=== PATIENT | male | born 1975 | race Caucasian/White ===

== ENCOUNTER 2019-12-08 16:29 | Outpatient (REF) | payer OTHER, SELFPAY | END 2019-12-08 16:30 | disposition home or self-care (01) | LOC: HO.OHS 16:29 | PROVIDERS: Visit Provider Physician Assistant Medical | DX: Z03.818 Encounter for observation for suspected exposure to other biological agents ruled out (principal) ==

== ENCOUNTER 2022-08-05 03:47 | Emergency (ER) | payer OTHER, SELFPAY ==
[2022-08-05 04:10] VITALS: BP 159/97; PULSE 69; RESP 16; O2SAT 98; BMI 30.8
--- NOTE | 2022-08-05 04:12 | ED_ITS ---
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 Denies any history of HIV or hepatitis Related Data Allergies Allergy/AdvReac Type Severity Reaction Status Date / Time No Known Allergies Allergy Unverified 11/10/19 17:29 [No Known Allergies*] Review of Systems Review of Systems: Yes all other systems are reviewed and are negative [facility] Social History Social History Advance Directives: No Advance Directives Information Provided: Yes Physical Exam ED Vital Signs: Vital Signs - 24 hr 08/05/22 04:10 Pulse Rate 69 Respiratory Rate 16 Blood Pressure 159/97 H Pulse Oximetry 98 Oxygen Delivery Method Room Air BMI result Body Mass Index 30.8 Extrem Hand/finger images: 1. Small puncture wound tip of right index finger no active bleeding Medications Administered Discontinued Medications Generic Name Dose Route Start Last Admin Trade Name Freq PRN Reason Stop Dose Admin Raltegravir/Emtricitabine/Tenofovir 1 kit 08/05/22 04:11 08/05/22 04:41 Post Exposure Medication Kit PO 08/05/22 04:12 1 kit ONCE ONE Administration Medical Decision Making Medical Decision Making MDM Narrative: Patient was given prophylactic post exposure medications in the ER advised to follow-up with her connection for further management Lab Data MDM Lab Attestation statement: I reviewed the patient's lab results. 08/05/22 04:20 08/05/22 04:20 Labs: Lab Results 08/05/22 08/05/22 Range/Units 04:20 04:20 WBC 7.0 (4.8-10.8) X10*3/uL RBC 4.57 L (4.60-5.80) X10*6/uL Hgb 14.7 (14.0-18.0) g/dl Hct 41.9 L (42.0-52.0) % MCV 91.7 (80.0-98.0) fL MCH 32.2 (27.0-33.0) pg MCHC 35.1 (31.0-36.0) g/dl RDW 11.8 (11.0-16.0) % Plt Count 256 (160-400) X10*3/uL MPV 9.0 L (9.4-12.4) fL Immature Gran % (Auto) 0.3 (0.0-0.4) % Neut % (Auto) 50.3 (45-73) % Lymph % (Auto) 35.5 (20-40) % [place] % (Auto) 9.1 (2-11) % Eos % (Auto) 3.9 (0-4) % Baso % (Auto) 0.9 (0-2) % Lymph # (Auto) 2.5 (1.2-4.9) X10*3/uL [place] # (Auto) 0.6 (0.1-1.2) X10*3/uL Eos # (Auto) 0.3 (0.0-0.4) X10*3/uL Baso # (Auto) 0.1 (0.0-0.2) X10*3/uL Abs Immat Gran (auto) 0.02 (0.00-0.03) X10*3/uL Absolute Neuts (auto) 3.5 (2.0-8.3) x10*3/uL Absolute Nucleated RBC 0.000 (0.0-0.012) X10*3/uL Nucleated RBC % (auto) 0.0 (0.0-0.2) /100WBC Sodium 143 (135-145) mmol/L Potassium 3.9 (3.3-5.1) mmol/L Chloride 110 H (96-108) mmol/L Carbon Dioxide 25 (22-29) mmol/L Anion Gap 12 (12-20) BUN 23 H (9-16) mg/dL Creatinine 0.80 (0.5-1.4) mg/dL Estim Creat Clear Calc 114.9 Estimated GFR > 60 Random Glucose 104 (60-115) mg/dL Calcium 9.1 (8.4-10.2) mg/dL Total Bilirubin 0.3 (0.0-1.0) mg/dL AST 18 (5-37) U/L ALT 33 (0-40) U/L Alkaline Phosphatase 45 (39-117) U/L Total Protein 6.6 (6.5-8.0) g/dL Albumin 4.1 (3.5-5.0) g/dL Discharge Plan Discharge Clinical Impression: Needle stick, hypodermic, accidental Patient Disposition: Home, Self-Care Instructions: Needle Stick Injuries (ED) Additional Instructions: Follow-up with work connection for further management
--- OUTSIDE RECORDS SUMMARY | 2022-08-05 04:21 | XMS_ITS | Continuity of Care Document ---
Author Name Unknown Organization [facility] al Address [address] [place] [address]- Care Team Providers Care Physician Representative Name Role Phone Anali Tyson Primary Care Physician [phone] [facility] Date(s): 04/14/19 - 04/15/[address] [address]- [facility] Discharge Disposition: A-D/C Home Attending Physician: Morenita Velez MD Admitting Physician: Morenita Velez MD Referring Physician: Not on Staff, Referring MD Allergies, Adverse Reactions, Alerts Substance Reaction Severity Status NKA Active Immunizations Given and Recorded Vaccine Date Status Refusal Reason tetanus-diphtheria toxoids (Td) 07/30/05 Given Medications Ativan 1 mg oral tablet 0.5 tablet = 0.5 mg, By Mouth, Daily, PRN as needed for anxiety, for 5 days, as needed for anxiety/panic attack, # 5 tablet, 0 Refills, Acute 04/20/19 0:38:00 EST, 04/15/19 0:38:00 EST, Tablet Start Date: 04/15/19 Stop Date: 04/20/19 Status: Ordered Ativan 1 mg oral tablet 1 tablet = 1 mg, By Mouth, 2 times a day, PRN as needed for anxiety, for 7 days, # 7 tablet, 0 Refills, Acute 04/22/19 0:39:00 EST, 04/15/19 0:39:00 EST, Tablet, [facility], 163, cm, 04/15/19 0:01:00 EST, Height, 82, kg, 04/15/19 0:01:0... Start Date: 04/15/19 Stop Date: 04/22/19 Status: Ordered Results Radiology Reports * Exam Date Time Procedure Performing Provider Status 04/14/19 11:49 PM Chest 2 Views Fronta l and Lat Cony [place]; Auth (Verified) Notes: (Chest 2 Views Frontal and Lat) Reason For Exam: Shortness of Breath RESULT: Chest 2 Views Frontal and Lat Chest 2 Views Frontal and Lat Refer to EMR; Reason: Shortness of Breath; Clinical Question(s): CHF; Hx of Present Illness: pt reports became lightheaded and dizzy @ work - felt like was going to pass out. BP 219 116- no hx. reports some intermittent L shoulder pain, tingling to all extremities when became lightheaded denies CP denies SOB; Other Objective Findings: alert aware of surroundings, talking in clear complete full s COMPARISON: None. FINDINGS: LINES AND TUBES: None. LUNGS AND PLEURA: Clear lungs. Normal pulmonary vascularity. No pleural effusion. No pneumothorax. HEART, MEDIASTINUM AND KEVIN: Heart is normal in size. Normal mediastinal and hilar contour. BONES AND SOFT TISSUES: No acute abnormality. IMPRESSION: No acute abnormality. WSN: [id number] Dictated By: Ezequiel Horton MD Dictated Date/Time: 04/14/19 11:52 p Reviewed By: Ezequiel Horton MD Signed By: Ezequiel Horton MD Signed Date/Time: 04/14/19 11:52 pm Transcribed By: MARCIO Transcribed Date/Time: 04/14/19 11:51 pm Vital Signs Most recent to oldest [Reference Range]: 1 2 3 Height 163 cm (04/15/19 12:01 AM) 163 cm (04/14/19 10:29 PM) 163 cm (04/14/19 10:19 PM) Weight 82 kg (04/15/19 12:01 AM) 82 kg (04/14/19 10:29 PM) 82 kg (04/14/19 10:19 PM) Oxygen Saturation [94-100 %] 99 % (04/15/19 12:01 AM) 99 % (04/14/19 10:14 PM) Pulse Rate [55-90 bpm] 76 bpm (04/15/19 12:01 AM) 76 bpm (04/14/19 10:29 PM) 77 bpm (04/14/19 10:14 PM) Body Mass Index [18.5-24.99] 30.86 *>HHI* (04/15/19 12:01 AM) 30.86 *>HHI* (04/14/19 10:29 PM) Blood Pressure [90-138/55-84 mm Hg] 135/88mm Hg (04/15/19 12:01 AM) 149/85mm Hg *H* (04/14/19 10:29 PM) 174/93mm Hg *H* (04/14/19 10:14 PM) Respiratory Rate [16-30 br/min] 15 br/min *L* (04/15/19 12:01 AM) 12 br/min *L* (04/14/19 10:29 PM) Temperature [96.8-100.4 DegF] 97.9 DegF (04/14/19 10:14 PM) Mode of Delivery (Oxygen) Room air (04/15/19 12:01 AM) Room air (04/14/19 10:14 PM) Blood pressure sites Arm, right (04/15/19 12:01 AM) Arm, right (04/14/19 10:29 PM) Arm, right (04/14/19 10:14 PM) Temperature Route Oral (04/14/19 10:14 PM) Dry Weight 82 kg (04/15/19 12:01 AM) 82 kg (04/14/19 10:29 PM) 82 kg (04/14/19 10:19 PM) Weight Obtained Via Patient/family state d (04/14/19 10:19 PM) Social History Social History Type Response Smoking Status Never (less than 100 in lifetime) entered on: 04/14/19 Sex
[2022-08-05 04:25] LABS: Basophils Absolute Auto 0.1 X10*3/uL (0.0-0.2); Basophils Percent Auto 0.9 % (0-2); Eosinophils Absolute Auto 0.3 X10*3/uL (0.0-0.4); Eosinophils Percent Auto 3.9 % (0-4); Hematocrit 41.9 % (42.0-52.0); Hemoglobin 14.7 g/dl (14.0-18.0); Imm Gran Abs Auto 0.02 X10*3/uL (0.00-0.03); Imm Gran Pct Auto 0.3 % (0.0-0.4); Lymphocytes Absolute Auto 2.5 X10*3/uL (1.2-4.9); Lymphocytes Percent Auto 35.5 % (20-40); MANUAL DIFF FLAG NO; Mean Corpuscular HGB Conc 35.1 g/dl (31.0-36.0); Mean Corpuscular Hemoglobin 32.2 pg (27.0-33.0); Mean Corpuscular Volume 91.7 fL (80.0-98.0); Monocytes Absolute Auto 0.6 X10*3/uL (0.1-1.2); Monocytes Percent Auto 9.1 % (2-11); Neutrophils Absolute Auto 3.5 x10*3/uL (2.0-8.3); Neutrophils Percent Auto 50.3 % (45-73); Platelet Count 256 X10*3/uL (160-400); Red Blood Count 4.57 X10*6/uL (4.60-5.80); Red Cell Distribution Width 11.8 % (11.0-16.0)
[2022-08-05] MEDS: Post Exposure Medication Kit 1 KIT PO (04:41)
[2022-08-05 04:54] LABS: Alanine Aminotransferase 33 U/L (0-40); Albumin Level 4.1 g/dL (3.5-5.0); Alkaline Phosphatase 45 U/L (39-117); Anion Gap 12 (12-20); Aspartate Amino Transferase 18 U/L (5-37); Bilirubin Total 0.3 mg/dL (0.0-1.0); Blood Urea Nitrogen 23 mg/dL (9-16); Calcium 9.1 mg/dL (8.4-10.2); Carbon Dioxide 25 mmol/L (22-29); Chloride 110 mmol/L (96-108); Creatinine Clr Calc Pharmacy 114.9; Estimated Glomerular Filt Rate > 60; Glucose Random 104 mg/dL (60-115); Potassium 3.9 mmol/L (3.3-5.1); Sodium 143 mmol/L (135-145); Total Protein 6.6 g/dL (6.5-8.0)
--- NOTE | 2022-08-05 04:58 | PC.NURSE ---
pt a&o, no sob or chest pain, Medicated per Apr, reviewed discharge instruction with pt. pt verbalized.
[2022-08-06 07:22] LABS: HBS Num1 2.06 mIU/mL (0-7.99); HBc Num1 0.09 S/CO (0.00-0.79); HBsAGNum1 0.26 S/CO (0.00-0.99); HIV AB/AG Nonreactive (Nonreactive); HIV Num 1 0.09 S/CO (0.00-0.99); Hepatitis B Core Antibody Nonreactive (Nonreactive); Hepatitis B Surface Antigen Negative (Negative); ~HepC Num1 0.09 S/CO (0.00-0.79); ~Hepatitis B Surface Antibody NONREACTIVE (Nonreactive)
[2022-08-06 07:54] LABS: Hepatitis C Ab Exposure Source NonReactive (Nonreactive)
== END 2022-08-05 05:08 | disposition home or self-care (01) ==
PROVIDERS: Emergency Provider Internal Medicine
DX: S61.230A Puncture wound without foreign body of right index finger without damage to nail, initial encounter (principal); X58.XXXA Exposure to other specified factors, initial encounter; Y93.9 Activity, unspecified; Y92.9 Unspecified place or not applicable; Y99.0 Civilian activity done for income or pay; Z20.828 Contact with and (suspected) exposure to other viral communicable diseases; Z79.899 Other long term (current) drug therapy
CPT/HCPCS: 36415; 80053; 85025; 86803; 99283; 99284

== ENCOUNTER → 2022-08-07 12:43 | Outpatient (BNVA) | payer OTHER, SELFPAY | PROVIDERS: Visit Provider Physician Assistant | DX: Z77.21 Contact with and (suspected) exposure to potentially hazardous body fluids (principal) | CPT/HCPCS: 99204 ==

== ENCOUNTER → 2022-09-04 09:26 | Outpatient (BNVA) | payer OTHER, SELFPAY | PROVIDERS: Visit Provider Physician Assistant | DX: Z77.21 Contact with and (suspected) exposure to potentially hazardous body fluids (principal) | CPT/HCPCS: 99213 ==

== ENCOUNTER 2025-02-03 08:15 | Outpatient (REF) | payer BC, SELFPAY ==
--- NOTE | ~2025-02-03 | XR_ITS ---
EXAMINATION: XR HAND 3 OR MORE VIEWS LEFT HISTORY: M25.542 - Pain in joints of left hand COMPARISON: There are no prior studies available for comparison. FINDINGS: Four views of the left hand are submitted. Osseous mineralization is normal. There is no fracture or dislocation. The joint spaces are preserved. There are soft tissue calcifications adjacent to the MCP joint of the thumb, of uncertain significance. XR/XR hand LT min 3V IMPRESSION: Soft tissue calcifications adjacent to the MCP joint of the thumb, of uncertain significance. Otherwise unremarkable examination of the left hand. Electronically signed by: Abhishek Lopez MD 02/03/2025 09:08 AM EST
== END 2025-02-03 08:16 | disposition home or self-care (01) ==
LOC: HO.HMGCX 08:15
PROVIDERS: PCP Family Medicine; Visit Provider Physician Assistant
DX: S62.102A Fracture of unspecified carpal bone, left wrist, initial encounter for closed fracture (principal); W23.0XXA Caught, crushed, jammed, or pinched between moving objects, initial encounter; Y93.89 Activity, other specified; Y92.9 Unspecified place or not applicable; Y99.0 Civilian activity done for income or pay
CPT/HCPCS: 73130

== ENCOUNTER 2025-02-03 08:15 | Outpatient (AMB) | payer BC, SELFPAY ==
[2025-02-03 08:19] VITALS: BP 142/94; PULSE 67; O2SAT 97; BMI 31.9
--- NOTE | 2025-02-03 08:19 | AM.OFFWIN_ITS ---
Intake Vital Signs 02/03/25 08:19 Height 5 ft 5 in Weight 192 lb BMI 31.9 BP 142/94 H Blood Pressure Location Rt brachial Position Sitting Pulse 67 Pulse Source Pulse Oximeter Pulse Oximetry (%) 97 Oxygen Delivery Method Room Air Intake Visit Reasons: EP-lt hand pain & swollen Intake Note: Patient presents c/o left thumb pain x3 days. Patient Tobacco Use Status: Never used Tobacco Allergies No Known Allergies (No Known Allergies*) Allergy (Unverified 02/03/25 08:21) Do you need a note to return to daycare/school/sports/work: Yes HPI HPI Comments History of Present Illness Details This is a 49-year-old [id number] male with a past medical history of obstructive sleep and hypertension presenting for evaluation of left thumb pain. Patient states he was wood working 3 days ago when he ?jammed my thumb?. Patient states that he had significant pain in his left thumb the next morning upon waking. Patient states he has pain with movement for which he has taken Advil. Patient denies any radiation of pain. [facility] Social History Patient Tobacco Use Status: Never used Tobacco Review of Systems Const All systems reviewed & are unremarkable except as noted in HPI and below Reports as per HPI Musc Reports arthralgias (left thumb), Reports joint swelling and Reports limited range of motion Skin/Breast Reports system reviewed and no additional complaints, except as documented Neuro Reports no additional complaints Psych Reports no additional complaints Physical Exam Vital Signs: Last Vital Signs Pulse 67 02/03/25 08:19 BP 142/94 H 02/03/25 08:19 Pulse Ox 97 02/03/25 08:19 Oxygen Delivery Method Room Air 02/03/25 08:19 BMI result Body Mass Index 31.9 Const General: cooperative, healthy appearing, comfortable, no acute distress, well developed, alert, awake and Physically active; No ill appearing or lethargic Nutritional Appearance: average body habitus Orientation/consciousness: patient oriented x3 and No lethargic Limitations: no limitations Skin Other: There are no abrasions, lacerations, ecchymosis or erythema of the left hand, no warmth to touch Neuro Other: Sensation is intact throughout the left hand General: patient oriented x3 Extrem Left upper extremity: normal to inspection, edema (minimal edema at the base of thumb, palmar surface) and hand Details: normal capillary refill and tenderness Location: of the dorsal hand Location: proximally (1st digit overlying 1st metacarpal) and over the 1st metacarpal; neuromotor exam normal (pain with flexion/extension 1st digit against resistance), no unusual warmth, no swelling, no abrasions, no lacerations, no ecchymosis and no foreign bodies; ROM limited Psych Appearance: grossly normal Mental Status: mental status grossly normal Insight: Good insight present (Psych) Judgement: Good judgement present (Psych) Results Reviewed Results Reviewed: Imaging reviewed; sesmoid fx. 1st digit left hand. Assessment & Plan Assessment & Plan (1) Fracture of sesamoid bone of hand with malunion: Comment: Imaging reveals a displaced fracture of the sesamoid bone first digit left hand, patient is placed in a thumb spica splint and will be referred to orthopedics through his PCP. Code(s): S62.109P - Fracture of unspecified carpal bone, unspecified wrist, subsequent encounter for fracture with malunion Qualifiers: Fracture type: closed Laterality: left Qualified Code(s): S62.102P - Fracture of unspecified carpal bone, left wrist, subsequent encounter for fracture with malunion Plan: Wear thumb spica splint daily until you are cleared by Orthopedics, Naprosyn 500 mg q.12 hours for pain. Imaging will be faxed to his primary care physician, Dr. Becerra to obtain orthopedic follow-up. Orders: Orders XR hand LT min 3V Today M25.542 - Pain in joints of left hand Medications: New naproxen (Naprosyn) 500 mg PO BID 20 tabs 0RF Coding Level of Care Code Est Pt Level 4 (36714) Diagnoses Closed fracture of sesamoid bone of left hand with malunion, subsequent encounter S62.102P Fracture type: closed Laterality: left Time Spent (min) 30
== END 2025-02-03 09:35 | disposition home or self-care (01) ==
PROVIDERS: Visit Provider Physician Assistant
DX: S62.102P Fracture of unspecified carpal bone, left wrist, subsequent encounter for fracture with malunion (principal)

== ENCOUNTER → 2025-02-03 08:47 | Outpatient (BNV) | payer BC, SELFPAY | PROVIDERS: PCP Family Medicine; Visit Provider Radiology Diagnostic Radiology | DX: M25.542 Pain in joints of left hand (principal) | CPT/HCPCS: 73130 ==

== ENCOUNTER 2025-02-17 08:02 | Outpatient (REF) | payer BC, SELFPAY ==
--- NOTE | ~2025-02-17 | XR_ITS ---
EXAMINATION: XR HAND, LEFT CLINICAL INFORMATION: M79.642 - Pain in left hand COMPARISON: None available. TECHNIQUE: PA, lateral, and oblique views of the left hand. FINDINGS: No acute fracture or dislocation. Minimal first CMC degeneration with tiny spurs. There is interval decrease in size of the soft tissue calcifications adjacent to the first MCP joint. No erosions.. XR/XR hand LT min 3V IMPRESSION: Soft tissue calcification adjacent to the first MCP joint is decreased in size as compared to previous. Electronically signed by: Frandy Rees MD 02/17/2025 04:17 PM JOS[facility] MIGUEL [facility]NS
--- OUTSIDE RECORDS SUMMARY | 2025-02-17 08:05 | XMS_ITS | Clinical Summary ---
Author Organization [facility] Address [address] [place] [id number] Phone Care Team Providers Care Silver Designer Name Role Phone Unknown, Unknown Primary Care Provider Unavai lable Allergies No known active allergies Medications hydroCHLOROthiazid e (HYDRODIURIL) 25 MG tablet Take 1 tablet by mouth every morning. 3 Active LORazepam (ATIVAN) 1 MG tablet TAKE 1 TABLET DAILY NEEDED ONLY 3 Active ondansetron (ZOFRAN-ODT) 4 MG disintegrating tablet TAKE 1 TABLET BY MOUTH 3 TIMES A DAY FOR 5 DAYS 3 Active methylPREDNISolone (MEDROL DOSEPACK) 4 mg tablet follow package directions 21 tablet 4 Active Active Problems No known active problems Social History Tobacco Use Types Packs/Day Years Used Date Smoking Tobacco: Never Assessed Education Answer Date Recorded Are you interested in more education? Not on yojana e 04/04/2023 Are you concerned about learning? Not on file 04/04/2023 No 04/04/2023 No 04/04/2023 Digital Access Answer Date Recorded No 04/04/2023 No 04/04/2023 Reliable internet access at home? Not on file 04/04/2023 Device with a working camera? Not on file Sex and Gender Information Value Date Recorded Sex Assigned at Not on file Legal Sex Male 11:23 AM EST Gender Identity Not on file Sexual Orientation Not on file Last Filed Vital Signs Vital Sign Reading Time Taken Comments Blood Pressure 122/72 04/04/2023 11:42 AM EST Pulse 70 04/04/2023 11:42 AM EST Temperature - - Respiratory Rate - - Oxygen Saturation 96% 04/04/2023 11:42 AM EST Inhaled Oxygen Concentration - - Weight 81.6 kg (180 lb) 04/04/2023 11:42 AM EST Height 162.6 cm (5' 4 ) 04/04/2023 11:42 AM EST Body Mass Index 30.9 04/04/2023 11:42 AM EST Plan of Treatment Health Maintenance Due Date Last Done Comments Adult Td,Tdap Booster 1975 LIPID PANEL 1975 POTASSIUM LEVEL 1975 DEPRESSION SCREENING 1987 SMOKING Hx and SMOKELESS TOB ACCO SCREENING 09/15/1988 HEPATITIS C SCREENING 09/15/1993 HIV ONE-TIME SCREENING (18-6 5 YEARS) 09/15/1993 SCREENING FOR DIABETES 09/15/2010 COLOGUARD 09/15/2020 COLONOSCOPY 09/15/2020 COLORECTAL CANCER SCREENING 09/15/2020 FIT TEST 09/15/2020 FOBT 09/15/2020 SIGMOIDOSCOPY 09/15/2020 VIRTUAL COLONOSCOPY 09/15/2020 INFLUENZA VACCINE (#1) 2024 COVID-19 VACCINE (1 - 2024-2 6 season) 2024 HEPATITIS A VACCINES Aged Out No long er eligible based on patient's age to complete this topic HIB VACCINES Aged Out No longer eligi ble based on patient's age to complete this topic MENINGOCOCCAL VACCINES (ACWY) Aged Out No longer eligible based on patient's age to complete this topic MENINGOCOCCAL VACCINES (B) Aged Out N o longer eligible based on patient's age to complete this topic PNEUMOCOCCAL VACCINES (0-49 years) Aged Out No longer eligible based on patient's age to complete this topic Medical Devices Not on file [place] [address] [place] [address] PPO EPO [facility] PPO EPO [facility] PPO EPO [facility] PPO EPO [facility] PPO EPO [facility] PPO EPO Care Teams Silver Designer Relationship Specialty Start Date End Date Unknown, Unknown, PCP - General 04/04/23 Additional Source Comments The information contained in this document represents components of the legal health record. It is not the complete legal health record.[facility]
== END 2025-02-17 08:03 | disposition home or self-care (01) ==
LOC: HO.HOSX 08:02
DX: M25.842 Other specified joint disorders, left hand (principal); M79.642 Pain in left hand; M79.89 Other specified soft tissue disorders
CPT/HCPCS: 73130

== ENCOUNTER 2025-02-17 11:39 | Outpatient (AMB) | payer BC, SELFPAY ==
[2025-02-17 11:55] VITALS: BMI 31.9
--- NOTE | 2025-02-17 11:55 | A.OFFVIS_ITS ---
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 Patient presented to [facility] Walk-In reporting he was working with wood around 01/31/25 where his thumb got jammed . He was given a script for naproxen and given a thumb spica splint. Patient reports today he is doing well. He denies any pain or discomfort, numbness, tingling, or swelling. Patient explains he needs a letter to return back to work. 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 Patient presented to [facility] Walk-In reporting he was working with wood around 01/31/25 where his thumb got jammed . He was given a script for naproxen and given a thumb spica splint. At that point, patient states he was in severe pain that has improved significantly since then. He was also told in the walk-in clinic that he had a fracture at , however this was now revised and he was then told that he had some calcifications in his left hand. Patient reports today he is doing well. He denies any pain or discomfort, numbness, tingling, or swelling. Patient states that he feels he is ready to return back to work full duty without issue. Patient explains he needs a letter to return back to work. [facility] Social History Patient Tobacco Use Status: Never used Tobacco Review of Systems Const All systems reviewed & are unremarkable except as noted in HPI and below Physical Exam Vital Signs: BMI result Body Mass Index 31.9 Extrem Other: Patient is alert, oriented, and in no acute distress. Neuro: Normal sensation of the tips of all digits of the left hand at this time Vascular: Cap refill brisk Pain: Very very minimal tenderness to palpation of the ulnar aspect of the MCP joint of the left thumb No other tenderness to palpation about the left thumb, wrist, hand noted No snuffbox tenderness ROM: Patient is able to make a closed fist and extend all digits of the left hand fully and without difficulty Skin: No lacerations or abrasions. General: No ecchymosis, erythema, or evidence of infection. Psych: Appears grossly normal Affect normal Attitude cooperative Results Reviewed Results Reviewed: X-rays obtained in the office today and independently reviewed by me, Wilmar Felix PA-C, demonstrate near complete resolution of calcifications noted on previous x-rays taken in the walk-in clinic. Assessment & Plan Assessment & Plan (1) Calcification of left hand joint: Code(s): M25.842 - Other specified joint disorders, left hand Category: Medical Plan 1. Soft tissue calcification of the left hand Patient is educated about I patient is educated about the typical treatment and recovery course Patient appears to be recovering very well, and I feel it is best for the pat ient to return to work full duty with no active restrictions indicated at this time Patient is provided with a note stating this If patient begins to experience increasing pain, he should put a splint back on, call us for reassessment, and cease any heavy lifting Patient understands this and is amenable to this plan Follow-up as needed Orders: Orders XR hand LT min 3V Today M79.642 - Pain in left hand Coding Level of Care Code New Pt Level 3 (03166) Diagnoses Calcification of left hand joint M25.842
== END 2025-02-17 12:09 | disposition home or self-care (01) ==
LOC: HO.HOS 11:40
PROVIDERS: PCP Family Medicine
DX: M25.842 Other specified joint disorders, left hand (principal)
CPT/HCPCS: 99203

== ENCOUNTER → 2025-02-17 11:46 | Outpatient (BNV) | payer BC, SELFPAY | PROVIDERS: Visit Provider Radiology Diagnostic Ultrasound | DX: M61.442 Other calcification of muscle, left hand (principal) | CPT/HCPCS: 73130 ==